=== PATIENT | male | born 1945 | race Caucasian/White ===

== ENCOUNTER 2017-07-20 07:04 | Day surgery (SDC) | payer OTHER, BC ==
[2017-07-20 07:45] VITALS: BMI 26.5
[2017-07-20 08:53] VITALS: PULSE 61
[2017-07-20 09:19] VITALS: BP 118/65; TEMP 98
--- NOTE | 2017-07-21 11:45 | PATH ---
Surgical Pathology Report Patient Name: MEGHAN CAGLE [facility]. Rec. #: [id number] /Age/Gender: 1945 (Age: 72) / M Account: [id number] Location: U-ENDOSCOPY Taken: 07/20/2017 Received: 07/20/2017 Reported: 07/21/2017 Physicians: Dyana Callejas M.D. Specimen(s) Received BX DESCENDING COLON POLYP Clinical History H/o adenoma, family h/o colon CA Final Diagnosis DESCENDING COLON POLYP, POLYPECTOMY: TUBULAR ADENOMA. Electronically Signed Avtar Arteaga M.D. Gross Description Received in formalin, labeled "polyp descending colon" are two pieces of jacobo, irregular soft tissue measuring 0.2 cm and 0.3 cm. in greatest dimension. The specimen is submitted in toto in one cassette. /07/20/17
== END 2017-07-20 09:20 | disposition home or self-care (01) ==
LOC: JASU-ENDO 07:04
PROVIDERS: ATTEND Internal Medicine Gastroenterology
PROC: 0DBM8ZX Excision of Descending Colon, Via Natural or Artificial Opening Endoscopic, Diagnostic (ICD-10-PCS; principal; 2017-07-20 08:00)
DX: Z12.11 Encounter for screening for malignant neoplasm of colon (principal); Z86.010 Personal history of colon polyps; D12.4 Benign neoplasm of descending colon; K57.30 Diverticulosis of large intestine without perforation or abscess without bleeding; K64.8 Other hemorrhoids
CPT/HCPCS: 88305-TC

== ENCOUNTER 2020-07-25 04:43 | Day surgery (SDC) | payer OTHER, BC ==
[2020-07-23 16:53] VITALS: BMI 24.9
[2020-07-25] MEDS ORDERED: KETAMINE HCL 200 MG/20 ML VIAL ONE (06:49)
[2020-07-25 08:31] VITALS: TEMP 98
[2020-07-25 09:36] VITALS: BP 151/79; PULSE 69
== END 2020-07-25 10:01 | disposition home or self-care (01) ==
LOC: JASU-ENDO 04:43
PROVIDERS: ATTEND Internal Medicine Gastroenterology
PROC: 0DBM8ZX Excision of Descending Colon, Via Natural or Artificial Opening Endoscopic, Diagnostic (ICD-10-PCS; 2020-07-25)
PROC: 0DBK8ZX Excision of Ascending Colon, Via Natural or Artificial Opening Endoscopic, Diagnostic (ICD-10-PCS; principal; 2020-07-25 08:00)
DX: Z12.11 Encounter for screening for malignant neoplasm of colon (principal); D12.2 Benign neoplasm of ascending colon; D12.4 Benign neoplasm of descending colon; K57.30 Diverticulosis of large intestine without perforation or abscess without bleeding; K64.8 Other hemorrhoids; Z86.010 Personal history of colon polyps; I10 Essential (primary) hypertension; Z85.46 Personal history of malignant neoplasm of prostate
CPT/HCPCS: 88305-TC

== ENCOUNTER 2023-10-24 04:59 | Day surgery (SDC) | payer OTHER, BC ==
[2023-10-20 11:18] VITALS: BMI 25.4
[2023-10-24 08:58] VITALS: TEMP 99.3
[2023-10-24 09:28] VITALS: RESP 16
[2023-10-24 09:29] VITALS: BP 140/79; PULSE 64
== END 2023-10-24 09:35 | disposition home or self-care (01) ==
LOC: JASU-ENDO 04:59
PROVIDERS: ATTEND Internal Medicine Gastroenterology
PROC: 0DBK8ZX Excision of Ascending Colon, Via Natural or Artificial Opening Endoscopic, Diagnostic (ICD-10-PCS; 2023-10-24)
PROC: 0DBK8ZX Excision of Ascending Colon, Via Natural or Artificial Opening Endoscopic, Diagnostic (ICD-10-PCS; principal; 2023-10-24 08:00)
DX: Z12.11 Encounter for screening for malignant neoplasm of colon (principal); D12.2 Benign neoplasm of ascending colon; K57.30 Diverticulosis of large intestine without perforation or abscess without bleeding; K64.8 Other hemorrhoids; Z86.010 Personal history of colon polyps
CPT/HCPCS: 88305-TC